=== PATIENT | male | born 1975 | race Caucasian/White ===

== ENCOUNTER 2019-08-12 14:25 | Outpatient (CLI) | payer OTHER, SELFPAY ==
--- NOTE | ~2019-08-12 | CT_ITS ---
EXAMINATION: CT soft tissue neck w con EXAM DATE: 08/12/2019 15:06 INDICATION: Neck mass. Symptoms for 2 months, right side. TECHNIQUE: Spiral CT of the neck was performed following intravenous injection of 75 mL Omnipaque 350 . Axial, coronal and sagittal images were reviewed. The dose-length product (DLP) for this examinat ion was 469.81 mGy-cm. The exposure was tailored according to patient size (auto mA exposure control ), and iterative reconstruction (ASIR) was used as additional dose reduction technique. There is no prior study for comparison. FINDINGS: There is round 2.1 cm homogeneous soft tissue density mass at the right mandibular angle mo st likely a pathologically enlarged lymph node. Largest left internal jugular obtained lymph node is 1 cm in diameter. No other cervical masses or pathologically enlarged lymph nodes identified. The thyroid gland is unremarkable. The submandibular and parotid glands are symmetric. The supe rior mediastinum is unremarkable. The airway is unremarkable. Parapharyngeal and pre-glottic fat planes are preserved. The opacified vasculature is patent. The orbits are unremarkable. Visuali zed sinuses and mastoid air cells are well aerated. Lung apices clear. Mild cervical spondylosis. IMPRESSION: Right mandibular angle soft tissue density mass most likely a pathologically enlarged int ernal jugular chain lymph node. Recommend ENT consult for histologic correlation. Reviewed, dictated and finalized at location A. IMPRESSION: Right mandibular angle soft tissue density mass most likely a patho logically enlarged internal jugular chain lymph node. Recommend ENT consult for histologic correlation.
== END 2019-08-12 14:26 | disposition home or self-care (01) ==
PROVIDERS: PCP Family Medicine; Visit Provider Physician Assistant
DX: R22.1 Localized swelling, mass and lump, neck (principal)
CPT/HCPCS: 70491; Q9967

== ENCOUNTER 2019-09-08 01:10 | Outpatient (CLI) | payer OTHER, SELFPAY ==
[2019-09-08 19:25] LABS: SARS-CoV-2 RNA PCR Negative
== END 2019-09-08 01:11 | disposition home or self-care (01) ==
LOC: ANHCOVIDDT 01:10
PROVIDERS: PCP Family Medicine; Visit Provider Otolaryngology
DX: Z01.812 Encounter for preprocedural laboratory examination (principal); Z11.59 Encounter for screening for other viral diseases
CPT/HCPCS: 87635; C9803; U0003

== ENCOUNTER 2019-09-10 01:44 | Day surgery (SDC) | payer OTHER, SELFPAY ==
[2019-08-27 16:07] VITALS: BMI 22.5
--- NOTE | 2019-09-08 06:41 | PM.HPGS ---
History of Present Illness History of Present Illness Consent: Risks, benefits, and alternatives have been discussed and questions answered. Patient agrees to proceed with procedure. 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 Ryan is a slightly larger recently admitted for elective excisi Review of Systems Review of Systems: All systems reviewed & are unremarkable except as noted in HPI and below PMFSH Social History Social History Smoking packs per day: 1 Smoking cigarettes per day: 20.0 Years smoked: 25 Smoking pack-years: 25.00 Smoking status: Current every day smoker Tobacco type: cigarettes Second hand tobacco smoke exposure: No Alcohol intake: current Drinks per week: 3 Substance use: current Substance use type: marijuana Last use: 08/27/2019 Gender identity (if verbalized by the patient): Male Spiritual care concerns: No Meds Home Medications and Allergies Home Medications Medication Instructions Recorded Confirmed Type bupropion HCl 150 mg 24 hr tablet, 150 mg PO QAM #30 tablet 08/19/19 08/27/19 Rx extended release Allergies Allergy/AdvReac Type Severity Reaction Status Date / Time No Known Allergies Allergy Mild Verified 08/27/19 16:08 Assessment and Plan Additional Plan excision right submandibular neck mass is the plan
--- NOTE | 2019-09-10 06:06 | WPDHPUPDATE1 ---
History and Physical Update Update Date/Time: 09/10/19 06:06 History and Physical has been reviewed, including an updated exam of the patient. There are NO changes in the patient's condition. Risks, benefits, and alternatives have been discussed and questions answered. Patient agrees to proceed with procedure.
[2019-09-10 06:47] VITALS: BP 116/68; PULSE 62; RESP 16; TEMP 36.7; O2SAT 98
--- NOTE | 2019-09-10 07:25 | WPDANESEPPF ---
Anes - Initial Pre Proc Eval Procedure: Operation Date: 09/10/19 08:00 Proposed Procedures p Excision Right Neck Mass - Randolph Padgett MD Date/Time: 09/10/19 07:25 Surgeon: Randolph Padgett MD Pre Op Diagnosis: Right Neck Mass Patient Data Age: 44 Gender: M Height: 6 ft 4 in Weight: 85.4 kg Last Vital Signs Temp 98.1 F 09/10/19 06:47 Pulse 62 09/10/19 06:47 Resp 16 09/10/19 06:47 BP 116/68 09/10/19 06:47 Pulse Ox 98 09/10/19 06:47 Allergies Allergy/AdvReac Type Severity Reaction Status Date / Time No Known Allergies Allergy Mild Verified 09/10/19 06:01 Home Medications Medication Instructions Recorded Confirmed Type bupropion HCl 150 mg 24 hr tablet, 150 mg PO QAM #30 tablet 08/19/19 09/10/19 Rx extended release Patient hx anesthesia problems: none Family hx anesthesia problems: none PMFSH Social History Social History Smoking packs per day: 1 Smoking cigarettes per day: 20.0 Years smoked: 25 Smoking pack-years: 25.00 Smoking status: Current every day smoker Tobacco type: cigarettes Second hand tobacco smoke exposure: No Alcohol intake: current Drinks per week: 3 Substance use: current Substance use type: marijuana Last use: 08/27/2019 Gender identity (if verbalized by the patient): Male Spiritual care concerns: No Anes - Eval Final PreProcedure Day of Procedure 09/10/19 07:25 Patient weight: normal Heart: regular rate and rhythm Lungs: clear to auscultation Airway: Mallampati scale class II Neurological: alert and oriented Last oral intake: >/= 8 hours ASA classification: II Emergent: no Anesthetic plan: proceed Anesthesia type and monitoring: general ETT and standard monitoring Informed Consent: The patient's anesthetic plan and its attendant risks and benefits were discussed with the patient/family/POA. Questions were solicited and answers provided to the satisfaction of the patient/family/POA.
--- NOTE | 2019-09-10 07:32 | WPDANESEPPF ---
Anes - Initial Pre Proc Eval Procedure: Operation Date: 09/10/19 08:00 Proposed Procedures p Excision Right Neck Mass - Randolph Padgett MD Date/Time: 09/10/19 07:32 Surgeon: Randolph Padgett MD Pre Op Diagnosis: Right Neck Mass Patient Data Age: 44 Gender: M Height: 6 ft 4 in Weight: 85.4 kg Last Vital Signs Temp 98.1 F 09/10/19 06:47 Pulse 62 09/10/19 06:47 Resp 16 09/10/19 06:47 BP 116/68 09/10/19 06:47 Pulse Ox 98 09/10/19 06:47 Allergies Allergy/AdvReac Type Severity Reaction Status Date / Time No Known Allergies Allergy Mild Verified 09/10/19 06:01 Home Medications Medication Instructions Recorded Confirmed Type bupropion HCl 150 mg 24 hr tablet, 150 mg PO QAM #30 tablet 08/19/19 09/10/19 Rx extended release Patient hx anesthesia problems: none Family hx anesthesia problems: none PMFSH Social History Social History Smoking packs per day: 1 Smoking cigarettes per day: 20.0 Years smoked: 25 Smoking pack-years: 25.00 Smoking status: Current every day smoker Tobacco type: cigarettes Second hand tobacco smoke exposure: No Alcohol intake: current Drinks per week: 3 Substance use: current Substance use type: marijuana Last use: 08/27/2019 Gender identity (if verbalized by the patient): Male Spiritual care concerns: No Anes - Eval Final PreProcedure Day of Procedure 09/10/19 07:32 Patient weight: normal Heart: regular rate and rhythm Lungs: clear to auscultation Airway: Mallampati scale class II Neurological: alert and oriented Last oral intake: >/= 8 hours ASA classification: II Emergent: no Anesthetic plan: proceed Anesthesia type and monitoring: general (or LMA) ETT and standard monitoring Informed Consent: The patient's anesthetic plan and its attendant risks and benefits were discussed with the patient/family/POA. Questions were solicited and answers provided to the satisfaction of the patient/family/POA.
[2019-09-10] MEDS: LACTATED RINGERS 1,000 ML 30 ML IV CONT (07:34)
[2019-09-10] MEDS: LIDO 1%/EPINEPHRINE 1:100,000 20 ML VIAL 3 ML INFILTRATE (07:46)
--- NOTE | 2019-09-10 08:13 | PM.PROC ---
Procedure Note - Detailed Date of procedure: 09/10/19 Pre-op diagnosis: Right Neck Mass neck mass Post-op diagnosis: same Procedure performed: patient was prepped and draped for vaginal is seizure incision was made under the angle of the mandible injected with xylocaine with adrenaline the mass was identified during the dissection of blunt hemostats a large amount of pus was aspirated and this was in neck abscess lymph node abscessed. The pus was aspirated 2 cc at 2 g of Ancef was given wound copiously irrigated hemostasis was obtained with bipolar electrocautery and closed in layers of chromic and Monocryl Description of procedure: patient paternal general anesthesia Bar style incision was made after injecting xylocaine with adrenaline dissection by sharp dissection and a large abscess was identified copiously irrigated and closed in layers with chromic and Monocryl Anesthesia: GLMA Surgeon: Randolph Padgett MD Estimated blood loss (mL): 5 Drains: No Packing: No Pathology: yes Complications: No immediate complications Condition: stable Disposition: PACU
[2019-09-10] MEDS: ceFAZolin SODIUM 1 GM VIAL 2 GM IV PUSH (08:14)
[2019-09-10 08:30] VITALS: BP 109/74; PULSE 61; RESP 14; TEMP 36.3; O2SAT 100
[2019-09-10 08:39] VITALS: BP 124/78; PULSE 65; RESP 12; O2SAT 100
[2019-09-10 09:00] VITALS: BP 116/73; PULSE 58; RESP 12; O2SAT 100
[2019-09-10 09:09] VITALS: BP 129/83; PULSE 56; RESP 16
[2019-09-10 09:31] VITALS: BP 127/82; PULSE 53; RESP 16
== END 2019-09-10 09:46 | disposition home or self-care (01) ==
PROVIDERS: PCP Family Medicine; Visit Provider Otolaryngology
PROC: (CPT 11426; principal; 2019-09-10 08:00)
DX: L02.11 Cutaneous abscess of neck (principal); F17.210 Nicotine dependence, cigarettes, uncomplicated; F12.90 Cannabis use, unspecified, uncomplicated
CPT/HCPCS: 11426; 12042; 88304; 88305; A9270; J0690; J1100; J2250; J2405; J2704; J3010; J7120

== ENCOUNTER 2022-10-11 20:22 | Emergency (ER) | payer OTHER, SELFPAY ==
--- NOTE | ~2022-10-11 | CT_ITS ---
EXAMINATION: XR abdomen/kub 1V, CT abdomen pelvis wo con DATE: 10/11/2022 21:12 INDICATION: Left flank and abdominal pain. TECHNIQUE: 1. Computed tomography (CT) of the abdomen and pelvis was performed without intravenous contrast. Aut omated exposure control and iterative reconstruction technique were employed. The dose-length product was 509.54 mGy-cm. 2. A supine view of the abdomen on 2 radiographs was obtained. COMPARISON: 09/23/2009 FINDINGS: CT: Mild dependent atelectasis in the peripheral left lower lobe and lingula. Mild emphysema. Heart size is normal. No pericardial or pleural effusion. Small sliding-type hiatal hernia. A few low-attenuatio n hepatic cysts the largest measuring 2.2 cm. Gallbladder, spleen, pancreas, bilateral adrenal glands and right kidney are normal. There is an obstructing 6 mm stone in the proximal left ureter with mil d left hydroureteronephrosis. No other urolithiasis. Bladder is normal. Bowels including the appendix are normal. No free intraperitoneal gas or fluid. No pathologically enlarged abdominal or pelvic lym phadenopathy. Bones are unremarkable. KUB: The left ureteral stone is clearly visualized secondary left psoas muscle slightly caudal to the left transverse process of L3. IMPRESSION: 1. Obstructing 6 mm proximal left ureteral stone with mild left hydroureteronephrosis. Line 2. Small sliding-type hiatal hernia. Reviewed, dictated and finalized at location A. IMPRESSION: 1. Obstructing 6 mm proximal left ureteral stone with mild left hydroureteronep hrosis. Line 2. Small sliding-type hiatal hernia.
[2022-10-11 20:22] VITALS: BP 128/88; PULSE 77; RESP 15; TEMP 36.8; O2SAT 100
[2022-10-11 20:41] LABS: Basophils Absolute Auto 0.1 K/mm3 (0.0-0.1); Basophils Percent Auto 1.2 % (0.2-1.2); Eosinophils Absolute Auto 0.2 K/mm3 (0-0.3); Eosinophils Percent Auto 1.3 % (0-4.4); Hematocrit 39.5 % (42.0-52.0); Hemoglobin 13.5 g/dL (14.0-18.0); Immature Granulocyte Absolute 0.02 K/mm3 (0.00-0.031); Immature Granulocyte Percent A 0.2 % (0-0.5); Lymphocytes Absolute Auto 5.24 K/mm3 (0.9-3.2); Lymphocytes Percent Auto 47.1 % (18.3-44.2); Mean Corpuscular HGB Conc 34.2 g/dl (32-36); Mean Corpuscular Hemoglobin 31.2 pg (26-34); Mean Corpuscular Volume 91.2 fl (80-100); Mean Platelet Volume 9.2 fl (7.4-10.4); Monocytes Percent Auto 9.3 % (2.6-8.5); Neutrophils Absolute Auto 4.6 K/mm3 (1.3-6.7); Neutrophils Percent Auto 40.9 % (45.5-73.1); Platelet Count Result 265 k/mm3 (150-375); Red Blood Count 4.33 M/mm3 (4.6-6.20); Red Cell Distribution Width 12.7 % (11.5-14.5); White Blood Count 11.1 K/mm3 (4.5-10.0)
[2022-10-11] MEDS: LACTATED RINGERS 1,000 ML 999 ML IV CONT (20:47)
[2022-10-11] MEDS: MORPHINE SULFATE (*CRX) 2 MG/ML INJ IV PUSH (20:47)
[2022-10-11 20:56] LABS: Alanine Aminotransferase 20 U/L (6-50); Alkaline Phosphatase 56 U/L (38-126); Anion Gap 6 mmol/L (8-16); Aspartate Amino Transferase 25 U/L (17-59); Bilirubin,Total 0.5 mg/dL (0.2-1.3); Blood Urea Nitrogen 11 mg/dL (9-20); Calcium 8.6 mg/dL (8.4-10.2); Carbon Dioxide 19 mmol/L (22-30); Chloride 106 mmol/L (98-107); Estimated CRCL calculation 84 ml/min; Estimated Glomerular Filt Rate > 60; Glucose 103 mg/dL (65-110); Potassium 3.5 mmol/L (3.4-5.0); Sodium 131 mmol/L (137-145)
--- NOTE | 2022-10-11 21:16 | ED.ABDPAIN ---
HPI - Abdominal Pain General Chief Complaint: Abdominal Pain Stated Complaint: abd pain Time Seen by Provider: 10/11/22 20:28 Source: patient Mode of arrival: ambulatory Limitations: no limitations History of Present Illness HPI narrative: 47-year-old male presents today with complaints of left lower abdominal pain radiating to his left flank that started this evening. Patient with some nausea. Denies dysuria, fever, body aches, chills. Denies any diarrhea. Does have a history of a kidney stone in the past which she had lithotripsy for. Patient works outside and has noticed dark urine over the last couple days. MD elicited complaint: abdominal pain Related Data Allergies Allergy/AdvReac Type Severity Reaction Status Date / Time codeine AdvReac Mild Irritable Verified 10/11/22 20:43 Review of Systems Review of Systems: All systems reviewed & are unremarkable except as noted in HPI and below PMFSH Past Medical History Medical History Migraine Renal calculi Surgical History Surgical History History of vasectomy Family History Family History Mother Lung cancer Father Malignant neoplasm of prostate Mother Family history of lung cancer Social History Social History Smoking packs per day: 1 Smoking cigarettes per day: 20.0 Years smoked: 25 Smoking pack-years: 25.00 Smoking status: Current every day smoker Tobacco type: cigarettes Second hand tobacco smoke exposure: No Alcohol intake: current Drinks per week: 3 Substance use: current Substance use type: marijuana Last use: 08/27/2019 Living arrangements: with family Occupation/Education: occupation Gender identity (if verbalized by the patient): Male Spiritual care concerns: No Exam Const: General: cooperative, healthy appearing, comfortable, no acute distress and well developed Orientation/consciousness: patient oriented x3 HENMT: Head: normal to inspection Eyes: General: appearance normal, both eyes and all related structures Resp: Effort & Inspection: normal respiratory effort and able to speak in complete sentences Auscultation: clear to auscultation bilaterally Cardio: Rate: regular rate Rhythm: regular rhythm Heart sounds: S1 normal heart sound present and S2 normal heart sound present GI: GI Palp: Yes Soft to palpation, No Tenderness to palpation present (GI) and No Guarding due to palpation present (GI) Auscultation: normal bowel sounds : General: No CVA tenderness Neuro: General: patient oriented x3 Course Course Emergency Course: Patient with improvement of pain after morphine. Discussed CT findings. Patient tolerating liquids and again pain is under control at this time. 6 mm stone noted. Will be discharged home with plan follow-up with urology and to return with any new or worsening concerns. He voiced understanding and agreement with plan of care. Vital Signs Vital signs: Vital Signs Temperature 98.3 F 10/11/22 20:22 Pulse Rate 77 10/11/22 20:22 Respiratory Rate 15 10/11/22 20:22 Blood Pressure 128/88 10/11/22 20:22 Pulse Oximetry 100 10/11/22 20:22 Oxygen Delivery Room Air 10/11/22 20:22 Temperature 98.3 F 10/11/22 20:22 Pulse Rate 62 10/11/22 21:55 Respiratory Rate 15 10/11/22 21:55 Blood Pressure 124/82 10/11/22 21:55 Pulse Oximetry 97 10/11/22 21:55 Oxygen Delivery Room Air 10/11/22 20:22 MDM - Abdominal Pain MDM Narrative Medical decision making narrative: 47-year-old male HPI as noted. Differentials as below. Work-up to include CBC, CMP, CT of the abdomen plain, KUB, urinalysis. CBC shows a slightly elevated white count 11.1 but patient has no fevers, body aches, chills are not concerning at this time. Rest of CB
[2022-10-11 21:55] VITALS: BP 124/82; PULSE 62; RESP 15; O2SAT 97
[2022-10-11 22:06] LABS: Add Urine Microscopic? YES; Appearance Urine Clear (Clear); Bacteria Urine None Seen /hpf; Bilirubin Urine Negative (Negative); Blood Urine 3+ (Negative); Color Urine Yellow (Yellow); Glucose Urine UA Negative (Negative); Ketones Urine Trace mg/dL (Negative); Leukocyte Esterase Ur Trace LEU/UL (Negative); Nitrate Urine Negative (Negative); Non Pathogenic Casts 0-2; Protein Urine Negative (Negative); RBC Urine 51-100 /hpf (0-2); Specific Grav Ur 1.009 (1.001-1.035); Squamous Epithelial Cell Urine None seen /hpf (Few); Urobilinogen Urine 0.2 mg/dL (<2.0); WBC Urine 0-5 /hpf
[2022-10-11] MEDS: HYDROcodone/acetaminophen (*CRX) 5-325 MG TABLET 1 TAB PO (22:36)
== END 2022-10-11 22:43 | disposition home or self-care (01) ==
PROVIDERS: Emergency Provider Nurse Practitioner Family
DX: N13.2 Hydronephrosis with renal and ureteral calculous obstruction (principal); F17.210 Nicotine dependence, cigarettes, uncomplicated; Z87.442 Personal history of urinary calculi; K44.9 Diaphragmatic hernia without obstruction or gangrene
CPT/HCPCS: 36415; 74018; 74176; 80053; 81001; 85025; 96361; 96374; 99284; A9270; J2270; J7120